=== PATIENT | male | born 1975 | race Caucasian/White ===

== ENCOUNTER 2023-07-25 11:23 | Day surgery (SDC) | payer OTHER, SELFPAY ==
[2023-07-23 11:29] VITALS: BMI 31.8
[2023-07-25 12:16] VITALS: BP 143/100; PULSE 84; RESP 20; TEMP 36.1; O2SAT 94
--- NOTE | 2023-07-25 12:32 | HO.ANESPROP2 ---
HPI - Anesthesia Eval Consult details Narrative: 48 yo male patient for Colonoscopy PMFSH Active Problems Active Problems: SHARRI. Uses CPAP intermittently Past Medical History Medical History SHARRI (obstructive sleep apnea) Family History Family history of problems with anesthesia: No Surgical History Surgical History Hx of wisdom tooth extraction History of Problems with Anesthesia: No Social History Social History Patient Tobacco Use Status: Never used Tobacco Are you DNR?: No Advance Directives: No Advance Directives Information Provided: Yes Nutrition Risks: No Nutritional Risk Meds Allergies Allergy/AdvReac Type Severity Reaction Status Date / Time No Known Allergies Allergy Verified 07/25/23 09:06 Home Medications Medication Instructions Recorded Confirmed Last Taken Type fluticasone propionate 50 spray intranasal 07/25/23 07/25/23 Unknown History mcg/actuation nasal spray,suspension Exam Exam Date and Time: July 25, 2023 1232 Height,Weight and Vital Signs: Height 5 ft 5 in Weight 86.636 kg Last Vital Signs Temp 96.9 F 07/25/23 12:16 Pulse 84 07/25/23 12:16 Resp 20 07/25/23 12:16 BP 143/100 H 07/25/23 12:16 Pulse Ox 94 07/25/23 12:16 O2 Del Method Room Air 07/25/23 12:16 Vital Signs Temp Pulse Resp BP Pulse Ox O2 Del Method 07/25/23 12:33 125/89 07/25/23 12:16 96.9 F 84 20 143/100 H 94 Room Air Airway Mallampati Class: II TM Dist: >3cm Neck ROM: Full Loose/Missing/Broken Teeth: Yes (1 chipped tooth bottom front. Denies loose or missing teeth) Heart: RRR Lungs: CTAB Assessment and Plan Assessment Anesthesia Assessment: Anesthesia Plan Discussed and Chart Reviewed Final Anesthetic Review Family History of Problems with Anesthesia: No History of Problems with Anesthesia: No NPO: Yes ASA Class: II Final Preanesthetic Review: No Changes in Pt Med Stat, Meds/Allgs Chart Reviewed, Consent Obtained/Reviewed and Anes Risks/Benef Reviewed Patient Risk: Intermediate Procedure Risk: Low Assessment/Block/Sedation in SS: Assess/Block/Sedation-SS Anesthetic Plan Anesthetic Plan: MAC: Disposition: Standard PACU
[2023-07-25 12:33] VITALS: BP 125/89
--- NOTE | 2023-07-25 12:59 | MHC.SHP ---
Pre-Procedural Eval Section A Date of Service: 07/25/23 Section B Chief Complaint: Encounter for screening for malignant neoplasm of Details of Present Illness: see H&P no changes Relevant Family History (Specify if Yes): No Relevant Social History: None Present Medications: None Medical History: No relevant PMH History of Previous Operations: No relevant previous surgery Allergies: Allergies Allergy/AdvReac Type Severity Reaction Status Date / Time No Known Allergies Allergy Verified 07/25/23 09:06 Review of Systems Sugical H&P ROS: Negative: Constitution, Cardiovascular, Respiratory, Neurological, Psychiatric, Hem-Onc, Allergic/Immunologic, Gastrointestinal, Genitourinary, Musculoskeletal, Integumentary, Endocrine and Eyes/Ears/Nose/Throat Exam Surgical H&P Exam: Normal: HEENT, Normal: Heart, Normal: Lungs, Normal: Extremities, Normal: Abdomen, Normal: Skin and Normal: Neurological Plan Diagnosis/Plan: Unchanged I have reviewed the history and physical and performed a pertinent physical examination on my patient. No changes have occurred unless specified. Time Spent With Patient Time: Total time managing care of this patient today ____ minutes.
[2023-07-25 13:37] VITALS: BP 111/72; PULSE 94; RESP 16; TEMP 36.3; O2SAT 97
--- NOTE | 2023-07-25 13:37 | P.BOP_ITS ---
Brief Operative Note Date of Service: 07/25/23 Pre-op diagnosis: screening Post-op diagnosis: same Procedure: colonoscopy Surgeon: Scott Reilly MD Anesthesia: MAC Was an Survey Methodologist used for this Procedure?: No Estimated blood loss (mL): 0 Pathology: none sent Condition: stable Disposition: PACU
[2023-07-25 13:52] VITALS: BP 109/76; PULSE 72; RESP 18; O2SAT 97
[2023-07-25 14:07] VITALS: BP 118/81; PULSE 70; RESP 18; O2SAT 99
[2023-07-25 14:22] VITALS: BP 121/91; PULSE 69; RESP 18; TEMP 36.6; O2SAT 100
--- NOTE | 2023-07-25 19:59 | OP_ITS ---
DATE OF SERVICE: 07/25/2023 SURGEON: Scott Reilly MD INDICATIONS: Colon cancer screening. PREOPERATIVE DIAGNOSIS: POSTOPERATIVE DIAGNOSIS: PROCEDURE PERFORMED: Colonoscopy to the terminal ileum. ESTIMATED BLOOD LOSS: COMPLICATIONS: ANESTHESIA: Monitored anesthesia care. ASSISTANTS: SPECIMENS: DESCRIPTION OF PROCEDURE: A history and physical were performed. The risks and benefits of the procedure were explained to the patient, and informed consent was obtained. The patient was placed in the left lateral decubitus position. A digital rectal exam was performed and was found to be normal. The Olympus pediatric video colonoscope was introduced into the rectum and advanced to the cecum. The cecum was identified by transillumination, palpation, and identification of ileocecal valve. Examination was performed, and the scope was removed. He tolerated the procedure well and was taken to recovery in stable condition. FINDINGS: The terminal ileum was normal. Visualized colonic mucosa was normal. The quality of prep was good. No polyps were identified. Retroflexed examination showed moderate-sized internal hemorrhoids. IMPRESSION: Normal colonoscopy. RECOMMENDATIONS: 1. Follow up as needed. 2. Repeat colonoscopy is recommended in 10 years for average risk individuals. MD AMADOU Underwood/MODL / [id number]
== END 2023-07-25 15:05 | disposition home or self-care (01) ==
PROVIDERS: Visit Provider Internal Medicine Gastroenterology
PROC: 0DJD8ZZ Inspection of Lower Intestinal Tract, Via Natural or Artificial Opening Endoscopic (ICD-10-PCS; CPT 45378; principal; 2023-07-25 13:00)
DX: Z12.11 Encounter for screening for malignant neoplasm of colon (principal); G47.33 Obstructive sleep apnea (adult) (pediatric); Z99.89 Dependence on other enabling machines and devices
CPT/HCPCS: 45378; J2250